=== PATIENT | female | born 1965 | race Caucasian/White ===

== ENCOUNTER 2025-01-07 11:35 | Emergency (ER) | payer SELFPAY ==
[2025-01-07 11:36] VITALS: BP 116/87; PULSE 71; RESP 14; TEMP 36.6; O2SAT 98; BMI 29.5
[2025-01-07 13:35] VITALS: BP 133/86; PULSE 76; RESP 15; O2SAT 96
--- NOTE | 2025-01-07 14:11 | ED.VIS.GI ---
HPI HPI - GI History of Present Illness Chief Complaint: Abd Pain Informant: patient Abdominal Pain/Flank Pain Onset: Days (2) Context: Gradual Onset Timing: Continuous Quality: Aching Location: LLQ Worsened by: Food Relieved by: Nothing Nausea/Vomiting/Emesis GI Symptom: Negative for Nausea or Vomiting Diarrhea/Melena/Hematochezia GI Symptom: Negative for Diarrhea, Melena or Hematochezia Associated Symptoms Associated Symptoms: Negative for Dysuria, Frequency or Hematuria Narrative Narrative: Patient presents with abdominal pain that has been getting worse over the past 2 days. Patient states she had a similar episode last week that resolved. Patient states it came on gradually. Patient describes it as aching. Patient states the pain is mainly over the left lower abdomen. Patient states it is worse after eating. Patient states nothing makes it better. Patient denies any nausea or vomiting. Patient denies any diarrhea, melena, or hematochezia. Patient denies any dysuria, frequency, or hematuria. Patient denies any fevers or chills. PFSH PFSH Medical History Diverticula, colon Home Medications ?Medication ?Instructions ?Recorded ?Last Taken ?Type ciprofloxacin HCl 500 mg tablet 500 mg PO BID #20 TABLETS 01/07/25 Unknown Rx metronidazole 500 mg tablet 500 mg PO Q6H #40 tabs 01/07/25 Unknown Rx Allergy/AdvReac Type Severity Reaction Status Date / Time No Known Allergies Allergy Verified 01/07/25 11:35 Family History Mother Diabetes Hypertension Kidney disease Surgical History no surgical history no surgical history Social History housing: house Smoking Status: Never smoker ROS ROS ED Constitutional Constitutional ED: Denies chills or fever(s) Eyes Eyes: Denies blurry vision or change in vision ENT ENT ED: Denies rhinorrhea or sore throat Cardiovascular Cardiovascular: Denies chest pain or palpitations Respiratory/Chest Respiratory/Chest: Denies cough or dyspnea Gastrointestinal Gastrointestinal: Reports abdominal pain; Denies nausea or vomiting Genitourinary Genitourinary ED: Denies dysuria or hematuria Musculoskeletal Musculoskeletal: Reports back pain; Denies neck pain Integumentary Denies abscess or rash Neurologic Neurologic: Reports headache(s); Denies weakness Allergic/Immunologic Allergic/Immunologic ED: Denies mouth swelling or urticaria EXAM Physical Exam Const Vital Signs: 01/07/25 11:36 01/07/25 13:35 01/07/25 15:00 Temperature 98 F Temperature Source Temporal Pulse Rate 71 76 75 Respiratory Rate 14 15 17 Blood Pressure 116/87 H 133/86 H Blood Pressure Mean 96 101 Pulse Ox 98 96 95 Oxygen Delivery Method Room Air Positive well nourished and well developed Constitutional Narrative: BMI 29.6. General Appearance ED: well developed and NAD HEENT Reports moist mucous membranes Neck supple and no JVD Resp normal respiratory effort and clear to auscultation bilaterally Cardio regular rate and regular rhythm GI non-distended Palpation: soft and tender LLQ; Negative for guarding or rebound tenderness present Extremity full ROM Neuro CN's II-XII intact bilaterally, moves all extremities and no sensory deficits noted Sensorium / Orientation: alert Motor Exam: strength 5/5 throughout Psych mental status grossly normal Skin no wounds MDM MDM MDM Narrative Medical decision making narrative: Differential diagnosis includes diverticulitis, bowel obstruction, perforation, ureteral calculus, pyelonephritis, urinary tract infection, and ovarian cyst. CT scan of the abdomen and pelvis will be obtained to assess for diverticulitis, colitis, bowel obstruction, perforation, and ureteral calculus. CBC will be obtained to assess for leukocytosis and anemia. Comprehensive metabolic profile will be obtained to assess for hepatic function, renal function, and electrolyte abnormality. Urinalysis will be obtained to assess for urinary tract infection and hematuria. Lab Data Attestation: I reviewed the patient's lab results. Lab results narrative: CBC was reviewed and was within normal limits. Comprehensive metabolic profile was reviewed. Alkaline phosphatase was slightly elevated at 135 and ALT was slightly elevated at 44. The remainder is within normal limits. Urinalysis was reviewed. There is no signs of urinary tract infection or hematuria. Labs: Laboratory Results - last 24 hr 01/07/25 14:00 WBC 8.4 RBC 4.21 Hgb 12.2 Hct 36.9 L MCV 87.6 MCH 29.0 MCHC 33.1 RDW Std Deviation 37.8 RDW Coeff of Sarah 11.8 Plt Count 311 MPV 11.0 Immature Gran % (Auto) 0.500 Neut % (Auto) 75.0 H Lymph % (Auto) 13.8 L [place] % (Auto) 9.5 Eos % (Auto) 0.7 Baso % (Auto) 0.5 Absolute Neuts (auto) 6.3 Absolute Lymphs (auto) 1.16 Nucleated RBC % 0 Sodium 139 Potassium 3.6 Chloride 102 Carbon Dioxide 24.5 Anion Gap 12 BUN 9 Creatinine 0.77 Estim Creat Clear Calc 78.57 Est GFR (MDRD) Non-Af 88 BUN/Creatinine Ratio 11.1 Glucose 92 Calcium 9.5 Total Bilirubin 0.77 AST 32 ALT 44 H Alkaline Phosphatase 135 H Total Protein 7.2 Albumin 3.9 Globulin 3.3 Albumin/Globulin Ratio 1.2 Urine Color Yellow Urine Clarity Clear Urine pH 6.5 Ur Specific [place] 1.010 Urine Protein 15 H Urine Glucose (UA) Normal Urine Ketones Negative Urine Occult Blood Negative Urine Nitrite Negative Urine Bilirubin Negative Urine Urobilinogen Normal Ur Leukocyte Esterase Negative Urine RBC 0 SEEN Urine WBC 0 SEEN Ur Squamous Epith Cells 0-5 SEEN Urine Bacteria 0 SEEN Urine Mucus 0 SEEN Radiography Diagnostic Testing: Clinical Impression(s) from Imaging Studies Abdomen/Pelvis CT 01/07/25 14:27 IMPRESSION: Moderate descending colon and sigmoid colon diverticulitis without abscess or phlegmon. Reading Location: [facility] CT scan of the abdomen and pelvis was obtained. There is moderate descending colon and sigmoid colon diverticulitis. There is no evidence of any abscess or phlegmon. There is no perforation. This was interpreted by the radiologist and was also independently reviewed by myself. Treatment and Re-Evaluation :: Patient was given IV fluids, morphine, and Zofran. Patient was advised of findings. Patient is feeling better on reevaluation. Patient was given prescriptions for Cipro and Flagyl. Patient was given her first dose here. Patient was instructed to avoid alcohol while taking the antibiotics. Patient was instructed to follow-up with her primary care physician in 5 to 7 days. Patient understood and was agreeable with the plan. All questions were answered. Discharge Plan Triage Chief Complaint: Abd Pain ED Provider: Stepan Dominguez Dx/Rx/DC Orders Clinical Impression: Diverticulitis large intestine w/o perforation or abscess w/o bleeding, Abdominal pain Instructions: ED Diverticulitis Prescriptions: New metronidazole 500 mg tablet 500 mg PO Q6H Qty: 40 0RF ciprofloxacin HCl 500 mg tablet 500 mg PO BID Qty: 20 0RF Primary Care Provider: Care Physician,No Primary Referrals: Kahlil Tang MD [Med Staff - Clinical Project Leader, Family Practice] - 5-7 Days Care Physician,No Primary [Primary Care Provider, Medical] Print Language: Hebrew Disposition Disposition: Home, Self Care
--- NOTE | 2025-01-07 14:27 | CT_ITS ---
PROCEDURE: ABDOMEN/PELVIS W IV CONT ONLY 01/07/2025 REASON FOR EXAM: ABDOMINAL PAIN TECHNIQUE: Procedure Code: [id number] Modality: CT Procedure: ABDOMEN/PELVIS W IV CONT ONLY Coronal and Sagittal reconstruction series were provided. CONTRAST: Isovue 370 VOLUME: 99 mL One or more dose reduction techniques were used (e.g., Automated exposure control, adjustment of the mA and/or kV according to patient size, use of iterative reconstruction technique. RADIATION DOSE SUMMARY: CTDlvol: 34 mGy DLP: 899 mGycm COMPARISON: None FINDINGS: Lung bases: Negative. ABDOMEN Liver: Negative. Biliary system: Negative. Negative for intrahepatic or extrahepatic ductal dilatation. Gallbladder: Contains stones. Negative for cholecystitis. Spleen: Negative. Pancreas: Negative. Adrenals: Negative. Kidneys: Negative. Negative for kidney stones, cysts or masses. Bowel: Increased stool throughout the colon. Descending colon and sigmoid colon diverticulitis with no distinct perforation or abscess. This is moderately inflamed and extends 13 cm. Negative for small or large-bowel obstruction. Appendix: Negative Vasculature: Moderate atherosclerotic vascular calcifications of the abdominal aorta and its branches. Peritoneum / Retroperitoneum: Negative. PELVIS Lymph nodes: Slight left iliac adenopathy. Likely relates to diverticulitis. Negative for inguinal adenopathy. Bladder: Negative Reproductive Organs: Uterus negative Bones and Soft Tissues: Age appropriate degenerative changes of the lumbar spine hips and pelvis. CT/Abdomen/Pelvis W IV Cont ONLY IMPRESSION: Moderate descending colon and sigmoid colon diverticulitis without abscess or p hlegmon. Reading Location: [id number]
[2025-01-07 14:33] LABS: Mucous, Urine 0 SEEN /hpf (<or=2+); Red Blood Cells-Urine 0 SEEN /hpf (0-5)
[2025-01-07] MEDS: 0.9% Normal Saline (1000mL) 1,000 ML 999 ML IV (14:35)
[2025-01-07 14:41] LABS: Color, Urine Yellow (Yellow); Glucose, Dipstick Normal (Normal); Ketone-Dipstick Negative (Negative); Leukocyte Esterase-Dipstick Negative /ul (Negative); Nitrite-Dipstick Negative (Negative); Occult Blood-Urine Negative /ul (Negative); Protein-Dipstick 15 mg/dl (Negative); Specific Gravity, Urine 1.010 (1.002-1.030); Urine Bilirubin Dipstick Negative (Negative)
[2025-01-07 14:45] LABS: Hematocrit 36.9 % (37-47); Hemoglobin 12.2 g/dL (12.0-15.0); Immature Granulocytes Count 0.040 X10^3/uL (0.0-0.0); Mean Corp Hgb Conc 33.1 g/dL (32-36); Mean Corpuscular Volume 87.6 fL (81-99); Mean Platelet Vol. 11.0 fl (6.2-12.0); NRBC Flagged by Analyzer 0 % (0-5); Platelet Count 311 K/mm3 (150-450); RBC Distribution Width CV 11.8 % (11.6-14.6); RBC Distribution Width SD 37.8 fl (35.1-43.9); Red Blood Count 4.21 M/mm3 (4.2-5.4); White Blood Count 8.4 K/mm3 (4.4-11.0)
[2025-01-07 14:48] LABS: Squamous Epithelial Cells - UA 0-5 SEEN /hpf (5-10)
[2025-01-07 15:00] VITALS: PULSE 75; RESP 17; O2SAT 95
[2025-01-07 15:01] LABS: AST(SGOT) 32 U/L (<=31); Alanine Aminotransfer ALT/SGPT 44 U/L (<=34); Albumin, Serum 3.9 g/dL (3.4-4.8); Alkaline Phosphatase 135 U/L (35-104); Anion Gap 12 (5-15); BUN 9 mg/dL (4-19); BUN/Creat Ratio 11.1 RATIO (10-20); Calcium,Total 9.5 mg/dL (7.6-11.0); Carbon Dioxide 24.5 mmol/L (21.0-32.0); Chloride 102 mmol/L (98-108); Estimated Creatinine Clearance 78.57 ml/min (50-250); Globulin 3.3 g/dL (2.2-4.2); Glucose 92 mg/dL (70-99); Potassium 3.6 mmol/L (3.3-5.1)
[2025-01-07 16:54] VITALS: BP 119/71; PULSE 75; RESP 17; TEMP 36.7; O2SAT 95
--- OUTSIDE RECORDS SUMMARY | 2025-01-07 17:53 | XMS RPT_ITS | CCD ---
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 [address] OFFICE VISIT Date of Service: 07/30/24 MR#: [id number] Acct: [id number] Patient: NELSON NORRIS Rep #: [id number] : 1965 Provider: KISHA Lovell Age/Sex: 59/F Location: [facility] Status: Signed Intake Vital Signs 07/30/24 08:40 Height 1.63 m Weight: 81.647 kg BMI 30.9 BP 115/77 Blood Pressure Location Lt brachial Position Sitting Pulse 66 Pulse Source Monitor Temp 98.2 F Temp Source Temporal Pulse Oximetry (%) 96 Intake Visit Reasons: EAR ACHE/DRAINING Chief Complaint: left ear auricular infection Allergies No Known Allergies Allergy (Unverified 07/30/24 08:41) Medications ???Medication ???Instructions ???Recorded ???Confirmed ???Type ciprofloxacin HCl 500 mg tablet 500 mg PO BID 5 days #10 tabs 07/2107/30/24 Rx PFSH Family History (Updated 07/30/24 @ 08:43 by Mel Blackmon) Mother Diabetes Hypertension Kidney disease Social History Smoking Status: Never smoker HPI HPI Chief Complaint: left ear auricular infection Details: NELSON NORRIS, is a 59 F who presents to the office today for left ear auricular infection. She had itching and a small blister in the auricle of the left ear. It was bothering her saturday and she scratched at it, opening it up. It started draining pus. The earlobe has become swollen red and painful. She has continued to have pus coming out. She has been cleaning it with peroxide and keeping gauze on it to absorb the driainage. She has no fever/chills. Ear canal is unaffected. ROS Const Constitutional: No body ache, chills, fatigue or fever(s) ENT ENT: Positive for ear or mastoid pain Endo Endocrine: No fatigue Exam Const General: cooperative, healthy appearing, comfortable, no acute distress, well developed and well groomed Nutritional Appearance: average body habitus and well nourished Orientation: alert, awake and oriented x3 HENMT Head: normocephalic and atraumatic Ears: other (L ear helix and antihelix swollen, erythematous, pus drainage) Resp Effort Inspection: normal respiratory effort, able to speak in complete sentences, symmetric chest movement and no cough Auscultation: Bilateral: Clear to Auscultation Cardio Rate: regular rate Rhythm: regular rhythm Heart Sounds: no murmurs Coding Level of Care Code Off vis,new,level 3 Diagnoses Acute perichondritis of left external ear H61.012 Assessment and Plan Assessment and Plan (1) Acute perichondritis of left external ear: Status: Acute Plan: swollen, erythematous, painful, with purulent drainage after she itched a blister on the left ear. start cipro 500 bid. clean area daily with gentle scrub and apply dab of bacitracin. follow up 1 week if ongoing issues no chronic medical issues/medication use Medications: New ciprofloxacin HCl 500 mg PO BID 5 days 10 tabs 0RF 07/30/24 0851 Date David BEARD Cosigner Signature: Date (if applicable) CC: Normal [facility] [place] Encounters Encounter Date Encounter Type Care Provider Facility Start: 07-30-2024 End: 07-30-2024 ambulatory David BEARD [place] [place] Payers Date Payer Category Payer Self-pay Unknown [id number] Summary Purpose Family History No Family History Records Found Advance Directives No Advanced Directives Records Found Additional Source Comments INFORMATION SOURCE (unrecogn ized section and content) DATE CREATED AUTHOR 07/31/2024 [facility] FOR RECORDS PERTAINING TO PATIENTS WHO ARE OR HAVE BEEN ENROLLED IN A CHEMICAL DEPENDENCY/SUBSTANCEABUSE PROGRAM, SOME INFORMATION MAY BE OMITTED. This clinical summary was aggregated from multiple sources. Caution should be exercised in using it in the provision of clinical care. This summary normalizes information from multiple sources, and as a consequence, information in this document may materially change the coding, format and clinical context of patient data. In addition, data may be omitted in some cases. CLINICAL DECISIONS SHOULD BE BASED ON THE PRIMARY CLINICAL RECORDS. [facility] [employer] [facility]. provides no warranty or guarantee of the accuracy or completeness of information in this document.
== END 2025-01-07 16:55 | disposition home or self-care (01) ==
PROVIDERS: Emergency Provider Emergency Medicine; Visit Provider Emergency Medicine
DX: K57.32 Diverticulitis of large intestine without perforation or abscess without bleeding (principal); R10.9 Unspecified abdominal pain; Z79.899 Other long term (current) drug therapy; R51.9 Headache, unspecified
CPT/HCPCS: 74177; 80053; 81001; 85025; 96361; 96374; 96375; 99284; Q9967; A4216; J2405